=== PATIENT | male | born 1975 | race Caucasian/White ===

== ENCOUNTER 2023-01-30 14:20 | Emergency (ER) | payer BC, SELFPAY ==
[2023-01-30 14:21] VITALS: BP 124/80; PULSE 74; RESP 18; TEMP 35.9; O2SAT 98; BMI 25.1
--- NOTE | 2023-01-30 16:35 | EX.ED.UPPERE ---
HPI History of Present Illness HPI Narrative: 47-year-old male [id number], tetanus up-to-date. He was doing home remodeling at his own home and he was carrying a stove slipped and cut the palmar aspect of his right ring finger. This occurred about 2 to 3 hours ago. Tetanus is up-to-date in the last 3 years. Denies other injuries. Chief Complaint: Laceration Informant: patient Occured/Mechanism Mechanism/Context: Yes injury Onset/Context/Timing Onset: Today and Hours Context: Sudden Onset Timing: Continuous Quality of Pain: Dull and Aching Current Severity: Mild Maximum Severity: Mild Associated Symptoms Associated Symptoms: Negative for Parasthesia, Weakness or Loss of Funtion Narrative Narrative: 47-year-old male with right hand laceration of the palmar aspect of the right long finger several hours prior to arrival. Tetanus Immunization: <5 years Prior similar symptoms: No Recent Illness/Hospitalization: No PFSH PFSH Allergy/AdvReac Type Severity Reaction Status Date / Time No Known Allergies Allergy Verified 01/30/23 14:20 Surgical History no surgical history no surgical history Social History Smoking Status: Never smoker ROS ROS ED ROS Narrative Denies recent illness. Review of Systems ROS Unobtainable: Denies due to encephalopathy Constitutional Constitutional ED: Denies chills or fever(s) Eyes Eyes: Denies blurry vision ENT ENT ED: Denies ear pain Cardiovascular Cardiovascular: Denies chest pain Respiratory/Chest Respiratory/Chest: Denies cough or dyspnea Gastrointestinal Gastrointestinal: Denies abdominal pain Genitourinary Genitourinary ED: Denies dysuria or hematuria Musculoskeletal Musculoskeletal: Denies back pain or myalgias Integumentary Denies abscess or Abrasions Neurologic Neurologic: Denies headache(s) Psychiatric Psychiatric: Denies anxiety Endocrine Endocrinology: Denies cold intolerance Hematologic/Lymphatic Hematologic/Lymphatic: Denies easy bleeding or easy bruising Allergic/Immunologic Allergic/Immunologic ED: Denies mouth swelling or tongue swelling EXAM Physical Exam Narrative Exam Narrative: 47-year-old male no acute distress. Vital signs stable afebrile. HEENT exam unremarkable atraumatic. Neck nontender. Lungs are clear. Heart regular rhythm no murmur. Chest wall and ribs nontender. Abdomen soft nontender. Moving all 4 extremities. Nontender. No deformity. Normal range of motion. Specifically right hand palmar aspect proximal phalanx he has about a 1 to 2 inch laceration involving the skin and subcu tissue. He has full flexion extension all digits of the right hand. No bony deformity or bony tenderness. No significant swelling. No foreign body. No signs of infection. No signs of tendon involvement. He can flex and extend against resistance. Normal touch sensation. This will need to be repaired. There is also some abrasions on the hand. Otherwise exam unremarkable. Const Vital Signs: 01/30/23 14:21 Temperature 96.7 F L Temperature Source Temporal Pulse Rate 74 Respiratory Rate 18 Blood Pressure 124/80 H Blood Pressure Mean 94 Pulse Ox 98 Oxygen Delivery Method Room Air Positive well nourished and well developed; Negative for obese, cachectic, contractures or unkempt General Appearance ED: well developed and NAD; Negative for unkempt, cachectic, contractures, cyanotic or diaphoretic Nutritional Appearance: Negative for cachectic or obese HEENT Reports moist mucous membranes normocephalic and atraumatic; Negative for trauma or tenderness Eyes PERRL and EOMs intact bilaterally General Eye ED: Negative for other Neck full ROM and supple General: Negative for tenderness Lymph Lymphatic: Negative for other Chest Wall inspection of chest normal and palpation of chest normal Chest: Negative for other Resp normal respiratory effort and clear to auscultation bilaterally Effort and Inspection: Negative for pain with movement Auscultation: Negative for rales, rhonchi or wheezes Cardio regular rate, regular rhythm, S1 normal heart sound, S2 normal heart sound and no murmurs Rate: Negative for bradycardia or tachycardic Rhythm: Negative for abnormal rhythm GI non-tender, non-distended and no masses Inspection: Negative for abdominal distention Auscultation: normoactive bowel sounds Palpation: soft; Negative for tender or guarding Back/Spine no CVA tenderness General Back: Negative for CVA tenderness Cervical Spine: Negative for cervical spine tenderness Thoracic Spine / Upper Back: Negative for thoracic spinal tenderness Lumbar Spine / Lower Back: Negative for lumbar spinal tenderness Extremity normal to inspection and full ROM Extremity Narrative: Right hand laceration proximal phalanx of right ring finger. Involving skin and subcu tissue. Full flexion extension against resistance. Normal touch sensation. No bony deformity. Superficial abrasions also on the knuckles. No bony tenderness. No foreign bodies. No signs of infection. General Extremety ED: Negative for edema General Extremity: Negative for edema Neuro oriented x3, CN's II-XII intact bilaterally, moves all extremities, no focal motor deficits and no sensory deficits noted Sensorium / Orientation: alert, oriented to person, oriented to place and oriented to time; Negative for orientation impaired, lethargic or stuporous Motor Exam: strength 5/5 throughout Psych mental status grossly normal Appearance: Negative for unkempt Attitude: No agitated Mood & Affect: Negative for depressed, anxious or tearful Skin General Skin Exam: Negative for petechiae Lesions: no lesions Rashes: no rashes Trauma: laceration; Negative for no lacerations or abrasions MDM MDM MDM Narrative Medical decision making narrative: 47-year-old male [id number]. Laceration right ring finger proximal palmar aspect. Will need to be repaired. Tetanus is already up-to-date. Procedures Lacerations Right ring finger laceration repair:: Length: 1.5 in Depth: Sub Q Shape: Linear Prep: Shure-Clens Laceration repair: Digital block, Lidocaine and Skin sutures Number of Sutures/[place]: 3 Suture Information: Ethilon, Simple and 4-0 Comment: ED and ring finger. Palmar aspect. Proximal phalanx. 1/2 inch laceration above the skin and subcu tissue. Full flexion extension. No tendon involvement. No foreign body. Digital block. Proper anesthetic. Compliance cleaned with Shur-Clens. Washed with saline. Closed using 3 simple erupted 4-0 Ethilon sutures. Proper hemostasis and wound closure is obtained. Patient tolerated procedure well. He was instructed on wound care and suture removal. Discharge Plan Triage Chief Complaint: Laceration ED Provider: Simon Montoya Dx/Rx/DC Orders Clinical Impression: Finger laceration Instructions: ED Laceration: All Closures Primary Care Provider: Kameron Asher Referrals: Kameron Asher MD [Primary Care Provider] - 10 Day for suture removal Activity Restrictions/Additional Instructions: Keep your hand dry and clean. You can get it wet but then dry it off thoroughly. Do not let it soak in water until the stitches are out. Clean daily with soap and water. Dry thoroughly. Motrin and/or Tylenol for pain. Antibiotic ointment daily. Stitches out in 10 days. Return if any signs of infection such as significant swelling, redness, red streaks, fever or significant swelling. Disposition Disposition: Home, Self Care
[2023-01-30] MEDS: Lidocaine 1% (20 ml mdv) 20 ML Vial 10 ML INFILT (17:18)
[2023-01-30 17:19] VITALS: PULSE 81; RESP 17; O2SAT 98
== END 2023-01-30 17:23 | disposition home or self-care (01) ==
LOC: ED 16:40
PROVIDERS: Emergency Provider Emergency Medicine; PCP Internal Medicine; Visit Provider Emergency Medicine
DX: S61.214A Laceration without foreign body of right ring finger without damage to nail, initial encounter (principal); W26.8XXA Contact with other sharp object(s), not elsewhere classified, initial encounter; Y93.89 Activity, other specified; Y92.009 Unspecified place in unspecified non-institutional (private) residence as the place of occurrence of the external cause
CPT/HCPCS: 12002; 99283